=== PATIENT | female | born 1975 | race American Indian/Alaskan Native ===

== ENCOUNTER 2017-06-13 23:07 | Emergency (ER) | payer OTHER ==
[2017-06-14] MEDS ORDERED: TRIMOX PO ONE (02:52)
--- NOTE | 2017-06-14 02:52 | Emergency Department Report ---
HPI - General Chief Complaint: Dental/Oral Time Seen by Provider: 06/14/17 02:09 - HPI HPI: The patient is a 42-year-old male who presents to ED complaining of 8/10 pain in the right side of his mouth x 5 days . Patient states that the pain started 5 days ago and has increased in severity over the last 2-3 days. The pain is exacerbated by eating and opening of the mouth. Patient states the pain is alleviated initially with pain medication but comes back. Patient states that it radiates towards ear. Patient describes a as a throbbing, pressure-like sensation. Patient states otherwise well and has no other complaints. Patient has had no fevers and no chills. No chest pain, no shortness of breath. No abdominal pain. No shortness of breath or recent trauma to the face. ED Past Medical Hx - Past Medical History Previous Medical History?: Yes Hx Diabetes: Yes - Surgical History Past Surgical History?: No - Social History Smoking Status: Never Smoker Substance Use Type: None - Medications Home Medications: Home Medications Medication Instructions Recorded Confirmed Last Taken Type Amoxicillin [Trimox CAP] 500 mg PO TID #21 capsule 06/14/17 Unknown Rx Naproxen [Naprosyn] 500 mg PO BID #30 tablet 06/14/17 Unknown Rx ED Review of Systems ROS: Stated complaint: TOOTHACHE Other details as noted in HPI Constitutional: denies: chills, fever Eyes: denies: eye pain, eye discharge, vision change ENT: denies: ear pain, throat pain Respiratory: denies: cough, shortness of breath, wheezing Cardiovascular: denies: chest pain, palpitations Endocrine: no symptoms reported Gastrointestinal: denies: abdominal pain, nausea, diarrhea Genitourinary: denies: urgency, dysuria, discharge Musculoskeletal: denies: back pain, joint swelling, arthralgia Skin: denies: rash, lesions Neurological: denies: headache, weakness, paresthesias Psychiatric: denies: anxiety, depression Hematological/Lymphatic: denies: easy bleeding, easy bruising Physical Exam - Physical Exam Vital Signs: Vital Signs 06/13/17 23:35 Temperature 98.4 F Pulse Rate 99 H Respiratory 18 Rate Blood Pressure 144/95 [Right] O2 Sat by Pulse 100 Oximetry Physical Exam: GENERAL: Alert and oriented x3, no apparent distress, Normal Gait, atraumatic. EARS: symetrical, atraumatic, non tender, ear canal clear and moderate cerumen, tympanic membrance non inflamed. gross auditory nml bilaterally. MOUTH:Mouth is well hydrated and without lesions. Tonsils nonerythematous or swollen, Uvula midline, Tongue not elevated. Mucous membranes are moist. Posterior pharynx clear, no exudate or lesions. Patent airways. No gingival enlargement, tenderness palpation of tooth #29 and 30. No bleeding, no pus discharge. NECK: Supple. Non edematous, No lymphadenopathy or thyromegaly. LUNGS: Symetrical with respiration, No wheezing, no rales or crackles, CTAB. HEART: S1, S2 present, regular rate and rhythm without murmur, no rubs, no gallops. Non tender to palpation SKIN: Warm and dry, No lesions, No ulceration or induration present. ED Course Vital Signs 06/13/17 23:35 Temperature 98.4 F Pulse Rate 99 H Respiratory 18 Rate Blood Pressure 144/95 [Right] O2 Sat by Pulse 100 Oximetry ED Medical Decision Making - Medical Decision Making 42-year-old female who presents with left-sided Facial pain secondary to odontogenic infection ED course: Patient received 1000 mg of amoxicillin, Odontogenic infection versus ear infection. Based upon history and physical examination, pain is a result of an infection of tooth number 29, 30and that the pain she feels on the right side of his face and towards the ear is referred pain from this infectious process. She has no evidence of acute impending airway compromise. At this point, patient will be discharged home on some antibiotics and pain trial, she will do well with an outpatient course of antibiotics. Follow up with the Dental Clinic as referred Discussed follow-up with primary care physician and dentist has referred Vital signs are normal patient is in no acute distress. She had an effect uneventful ED stay Critical care attestation.: If time is entered above; I have spent that time in minutes in the direct care of this critically ill patient, excluding procedure time. ED Disposition Clinical Impression: Pain, dental, Tooth infection Disposition: - TO HOME OR SELFCARE Is pt being admited?: No Does the pt Need Aspirin: No Condition: Stable Instructions: Dental Caries (ED), Toothache (ED) Prescriptions: Amoxicillin [Trimox CAP] 500 mg PO TID #21 capsule Naproxen [Naprosyn] 500 mg PO BID #30 tablet Referrals: PRIMARY CARE, [Primary Care Provider] - 3-5 Days [facility] [Outside] - 3-5 Days [facility] [Outside] - 3-5 Days [facility] [Outside] - 3-[address] [facility] [Outside] - 3-5 Days Forms: Accompanied Note, Work/School Release Form(ED) Time of Disposition: 03:04
[2017-06-14] MEDS ORDERED: TYLENOL #3 ONE (03:26)
[2017-06-14 03:59] VITALS: BP 139/91
[2017-06-14] MEDS ORDERED: TYLENOL #3 PO ONE (05:07)
== END 2017-06-14 03:59 | disposition home or self-care (01) ==
LOC: ED 23:07
DX: K02.9 Dental caries, unspecified (principal); K08.89 Other specified disorders of teeth and supporting structures; E11.9 Type 2 diabetes mellitus without complications
CPT/HCPCS: 99282

== ENCOUNTER 2017-10-16 18:03 | Emergency (ER) | payer BC, OTHER ==
--- NOTE | 2017-10-16 23:03 | Emergency Department Report ---
ED ENT HPI - General Chief complaint: Upper Respiratory Infection Stated complaint: NOSE PAIN Time Seen by Provider: 10/16/17 21:55 Source: patient Mode of arrival: Ambulatory Limitations: No Limitations - History of Present Illness Initial comments: This is a 44-year-old female nontoxic, well nourished in appearance, no acute signs of distress presents to the ED with c/o of bilateral nose pain and sinus pain x1 week. Patient denies any trauma. She has seasonal allergies in the past month it is at its worst. Denies nose bleed. Denies headache, nausea, vomiting, chest pain, shortness of breathe, fever, chills, stiff neck, blurry vision. Patient denies any allergies. Medical history includes diabetes. -: week(s) (1) Location: nose Severity: mild Severity scale (0 -10): 8 Quality: aching Consistency: constant Improves with: none Worsens with: none Associated Symptoms: denies: fever, cough, gum swelling, toothache, pain with swallowing, sore throat, tinnitus, hearing loss, discharge from ear, rhinorrhea - Related Data Previous Rx's Medication Instructions Recorded Last Taken Type Amoxicillin [Trimox CAP] 500 mg PO TID #21 capsule 06/14/17 Unknown Rx Naproxen [Naprosyn] 500 mg PO BID #30 tablet 06/14/17 Unknown Rx Amoxicillin/K Clav Tab [Augmentin 1 tab PO Q12HR #20 tab 10/17/17 Unknown Rx 875 mg] Fluticasone [Flonase] 1 spray NS QDAY #1 bottle 10/17/17 Unknown Rx predniSONE [Deltasone] 20 mg PO BID #10 tab 10/17/17 Unknown Rx Allergies Allergy/AdvReac Type Severity Reaction Status Date / Time No Known Allergies Allergy Verified 06/13/17 23:47 ED Dental HPI - General Chief complaint: Upper Respiratory Infection Stated complaint: NOSE PAIN Time Seen by Provider: 10/16/17 21:55 Source: patient Mode of arrival: Ambulatory Limitations: No Limitations - Related Data Previous Rx's Medication Instructions Recorded Last Taken Type Amoxicillin [Trimox CAP] 500 mg PO TID #21 capsule 06/14/17 Unknown Rx Naproxen [Naprosyn] 500 mg PO BID #30 tablet 06/14/17 Unknown Rx Amoxicillin/K Clav Tab [Augmentin 1 tab PO Q12HR #20 tab 10/17/17 Unknown Rx 875 mg] Fluticasone [Flonase] 1 spray NS QDAY #1 bottle 10/17/17 Unknown Rx predniSONE [Deltasone] 20 mg PO BID #10 tab 10/17/17 Unknown Rx Allergies Allergy/AdvReac Type Severity Reaction Status Date / Time No Known Allergies Allergy Verified 06/13/17 23:47 ED Review of Systems ROS: Stated complaint: NOSE PAIN Other details as noted in HPI Constitutional: denies: chills, fever Eyes: denies: eye pain, eye discharge, vision change ENT: denies: ear pain, throat pain Respiratory: denies: cough, shortness of breath, wheezing Cardiovascular: denies: chest pain, palpitations Endocrine: no symptoms reported Gastrointestinal: denies: abdominal pain, nausea, diarrhea Genitourinary: denies: urgency, dysuria, discharge Musculoskeletal: denies: back pain, joint swelling, arthralgia Skin: denies: rash, lesions Neurological: denies: headache, weakness, paresthesias Psychiatric: denies: anxiety, depression Hematological/Lymphatic: denies: easy bleeding, easy bruising ED Past Medical Hx - Past Medical History Previous Medical History?: Yes Hx Diabetes: Yes - Surgical History Past Surgical History?: Yes Additional Surgical History: C-Sec X1 - Social History Smoking Status: Former Smoker Substance Use Type: None - Medications Home Medications: Home Medications Medication Instructions Recorded Confirmed Last Taken Type Amoxicillin [Trimox CAP] 500 mg PO TID #21 capsule 06/14/17 Unknown Rx Naproxen [Naprosyn] 500 mg PO BID #30 tablet 06/14/17 Unknown Rx Amoxicillin/K Clav Tab [Augmentin 1 tab PO Q12HR #20 tab 10/17/17 Unknown Rx 875 mg] Fluticasone [Flonase] 1 spray NS QDAY #1 bottle 10/17/17 Unknown Rx predniSONE [Deltasone] 20 mg PO BID #10 tab 10/17/17 Unknown Rx ED Physical Exam - General Limitations: No Limitations General appearance: alert, in no apparent distress - Head Head exam: Present: atraumatic, normocephalic, normal inspection - Eye Eye exam: Present: normal appearance, PERRL, EOMI. Absent: scleral icterus, conjunctival injection, nystagmus, periorbital swelling, periorbital tenderness Pupils: Present: normal accommodation - ENT ENT exam: Present: normal exam, normal orophraynx, mucous membranes moist, TM's normal bilaterally, normal external ear exam - Neck Neck exam: Present: normal inspection, full ROM. Absent: tenderness, meningismus, lymphadenopathy, thyromegaly - Respiratory Respiratory exam: Present: normal lung sounds bilaterally. Absent: respiratory distress, wheezes, rales, rhonchi, stridor, chest wall tenderness, accessory muscle use, decreased breath sounds, prolonged expiratory - Cardiovascular Cardiovascular Exam: Present: regular rate, normal rhythm, normal heart sounds. Absent: irregular rhythm, systolic murmur, diastolic murmur, rubs, gallop - GI/Abdominal GI/Abdominal exam: Present: soft, normal bowel sounds. Absent: distended, tenderness, guarding, rebound, rigid - Rectal Rectal exam: Present: deferred - Extremities Exam Extremities exam: Present: normal inspection, full ROM, normal capillary refill. Absent: tenderness, pedal edema, joint swelling, calf tenderness - Back Exam Back exam: Present: normal inspection, full ROM. Absent: tenderness, CVA tenderness (R), CVA tenderness (L), muscle spasm, paraspinal tenderness, vertebral tenderness, rash noted - Neurological Exam Neurological exam: Present: alert, oriented X3, CN II-XII intact, normal gait, reflexes normal - Psychiatric Psychiatric exam: Present: normal affect, normal mood - Skin Skin exam: Present: warm, dry, intact, normal color. Absent: rash - Other Other exam information: Positive swelling of turbinates. Positive frontal sinus tenderness. No hematoma of nostril present. No abscess. ED Course Vital Signs 10/16/17 20:37 Temperature 98.6 F Pulse Rate 100 H Respiratory 16 Rate Blood Pressure 171/96 O2 Sat by Pulse 98 Oximetry - Reevaluation(s) Reevaluation #1: 10/16/17 23:02 Patient is speaking in full sentences with no signs of distress noted. - Consultations Consultation #1: 10/16/17 23:03 Dr. Marie has been consulted about patient history, physical exam, and examined patient himself. Agrees to the plan of care in the ED. ED Medical Decision Making - Lab Data Result diagrams: 10/16/17 23:09 10/16/17 23:09 - Medical Decision Making This is a 42-year-old female that presents with sinusitis, a large turbinates, possible small abscess left septal soft tissue. Patient is stable and was examined by me and Dr. Marie. CT without contrast has been obtained and interpreted by radiologist. Patient notified of CT findings with no gross noted by the patient. Patient was strictly instructed to follow-up with ear nose and throat doctor within 24 hours for possible abscess of the subpectoral tissue. Patient he will go first thing in the morning to follow up with a ear nose and throat doctor. Patient received Decadron 10 and evening. Patient is discharged with Augmentin, prednisone, and Flonase. At time time of discharge, the patient does not seem toxic or ill in appearance. No acute signs of distress noted. Patient agrees to discharge treatment plan of care. No further questions noted by the patient. Critical care attestation.: If time is entered above; I have spent that time in minutes in the direct care of this critically ill patient, excluding procedure time. ED Disposition Clinical Impression: Nasal turbinate hypertrophy Sinusitis Qualifiers: Sinusitis location: frontal Chronicity: acute Recurrence: non-recurrent Qualified Code(s): J01.10 - Acute frontal sinusitis, unspecified Disposition: DC-01 TO HOME OR SELFCARE Is pt being admited?: No Does the pt Need Aspirin: No Condition: Stable Instructions: Sinusitis (ED), Amoxicillin/Clavulanate Potassium (By mouth) Additional Instructions: As instructed and instructed in the ED, you must follow up with ear nose and throat doctor in 24 hours or if symptoms worsen and continue he must return to emergency room as soon as possible. Prescriptions: Amoxicillin/K Clav Tab [Augmentin 875 mg] 1 tab PO Q12HR #20 tab Fluticasone [Flonase] 1 spray NS QDAY #1 bottle predniSONE [Deltasone] 20 mg PO BID #10 tab Referrals: PRIMARY CARE, [Primary Care Provider] - 3-5 Days JUDY SAHU MD [Staff Physician] - 3-5 Days [facility] [Outside] - 3-5 Days [facility] [Outside] - 3-5 Days [facility] [Provider Group] - 24 Hours MILY BUITRAGO MD [Staff Physician] - 24 Hours Forms: Work/School Release Form(ED)
[2017-10-16] MEDS ORDERED: DECADRON IM ONE (23:04)
[2017-10-16 23:47] LABS: Anion Gap 20 mmol/L; BUN/Creatinine Ratio 32; Blood Urea Nitrogen 16 mg/dL (7-17); Calcium 8.8 mg/dL (8.4-10.2); Carbon Dioxide 21 mmol/L (22-30); Chloride 106.2 mmol/L (98-107); Glucose 117 mg/dL (65-100); Potassium 4.2 mmol/L (3.6-5.0); Sodium 143 mmol/L (137-145)
[2017-10-16 23:55] LABS: Basophils % (Auto) 0.6 % (0.0-1.8); Eosinophils % (Auto) 1.5 % (0.0-4.3); Hematocrit 40.1 % (30.3-42.9); Hemoglobin 12.6 gm/dl (10.1-14.3); Mean Corpuscular HGB Conc 32 % (30-34); Mean Corpuscular Hemoglobin 29 pg (28-32); Mean Corpuscular Volume 93 fl (79-97); Platelet Count 238 K/mm3 (140-440); Red Blood Count 4.33 M/mm3 (3.65-5.03); Red Cell Distribution Width 15.3 % (13.2-15.2); White Blood Count 8.3 K/mm3 (4.5-11.0)
[2017-10-17] MEDS ORDERED: NACL ONE (00:09)
--- NOTE | 2017-10-17 00:55 | Cat Scan Report ---
FINAL REPORT PROCEDURE: CT FACIAL BONES W CON TECHNIQUE: Computerized tomography of the facial bones and soft tissues with axial and coronal sections was performed from the cranial aspect of the frontal sinuses to the caudal portion of the mandible following the IV injection of iodinated nonionic contrast. DLP 878.25 mGy-cm. HISTORY: Septal swelling. COMPARISON: No prior studies are available for comparison. FINDINGS: Bones: Slight anterior subluxation of the TMJs bilaterally. Paranasal sinuses: Mild maxillary mucoperiosteal thickening. Mild thickening of the soft tissues about the septum. 2-3 millimeter area of low attenuation about the left paramedian septum (image 53 series 102). Inferior turbinates are mildly edematous. Ostiomeatal units are patent. Possible prior left maxillary sinus antral window. Soft tissues: No significant abnormality. Abnormal enhancement: None. Other: Mild thickening of the nasal and parapharyngeal soft tissues and slight prominence of the tonsils. Small scattered lymph nodes throughout the neck. There may be small cavities in the right posterior maxillary molar. IMPRESSION: Mild maxillary mucoperiosteal thickening/sinusitis. Mild thickening of the soft tissues about the septum. Although could be volume averaging, cannot exclude tiny 2-3 millimeter area of low attenuation which may represent early/developing small abscess in the left paramedian septal soft tissues. Turbinates are mildly edematous. Mild thickening of the nasal and parapharyngeal soft tissues and slight prominence of the tonsils, consider pharyngitis. Small lymph nodes likely reactive. Slight anterior subluxation of the TMJs bilaterally. Possible small cavities in the right posterior maxillary molar, consider dental consultation.
[2017-10-17 03:08] VITALS: BP 159/91
== END 2017-10-17 01:20 | disposition home or self-care (01) ==
LOC: ED 18:03
DX: J34.3 Hypertrophy of nasal turbinates (principal); J32.1 Chronic frontal sinusitis; E11.9 Type 2 diabetes mellitus without complications; Z87.891 Personal history of nicotine dependence
CPT/HCPCS: 36415; 70487; 80048; 85025; 96372; 99284; J1100; Q9967

== ENCOUNTER 2020-11-14 11:00 | Outpatient (CLI) | payer BC | END 2020-11-15 11:00 | disposition home or self-care (01) | LOC: SLR 11:00 | PROVIDERS: ATTEND Otolaryngology | DX: G47.30 Sleep apnea, unspecified (principal); E66.9 Obesity, unspecified; R40.0 Somnolence | CPT/HCPCS: G0399 ==